=== PATIENT | male | born 1995 | race Caucasian/White ===

== ENCOUNTER 2017-03-22 14:17 | Emergency (ER) | payer SELFPAY ==
[~2017-03-22] VITALS: Ht 167.6 cm; Wt 81.6 kg
[2017-03-22 14:17] VITALS: BP_SYST 127
--- NOTE | 2017-03-22 14:17 | NUR ---
BROUGHT IN BY JASON VEE AND TRIAGED, DR MAGANA AT BEDSIDE.
--- NOTE | 2017-03-22 14:24 | NUR ---
Patient given written and verbal discharge instructions and verbalizes understanding. ER MD discussed with patient the results and treatment provided. Patient in stable condition. ID arm band removed. Rx of NONE given. Patient educated on pain management and to follow up with PMD. Pain Scale 0/10. Opportunity for questions provided and answered.
== END 2017-03-22 14:25 ==
LOC: SED 14:17
DX: Z02.89 Encounter for other administrative examinations (principal)
CPT/HCPCS: 99283